=== PATIENT | male | born 1955 | race Caucasian/White ===

== ENCOUNTER → 2017-12-29 | Outpatient (CLI) | payer OTHER | END | disposition home or self-care (01) | LOC: CVU 06:42 | PROVIDERS: ATTEND Internal Medicine Cardiovascular Disease | DX: I34.0 Nonrheumatic mitral (valve) insufficiency (principal); I10 Essential (primary) hypertension; I25.10 Atherosclerotic heart disease of native coronary artery without angina pectoris; E11.9 Type 2 diabetes mellitus without complications; E78.2 Mixed hyperlipidemia; R94.5 Abnormal results of liver function studies; Z95.5 Presence of coronary angioplasty implant and graft | CPT/HCPCS: 78452; 93017; 93306; A9502 ==